=== PATIENT | female | born 1990 | race Caucasian/White ===

== ENCOUNTER 2017-09-05 13:02 | Outpatient (CLI) | payer BC ==
[~2017-09-05] VITALS: Ht 182.9 cm; Wt 77.1 kg
[2017-09-05 13:10] VITALS: BP 138/101
[2017-09-05 13:51] VITALS: BP 135/65
[2017-09-05 14:06] LABS: BILIRUBIN,URINE NEGATIVE (NEGATIVE); KETONES,URINE NEGATIVE (NEGATIVE); LEUKOCYTE ESTERASE ,URINE 1+ (NEGATIVE); NITRITE,URINE NEGATIVE (NEGATIVE); PH,URINE 7 (5-9); PROTEIN,URINE 2+ (NEGATIVE); UROBILINOGEN,URINE NORMAL (NORMAL)
[2017-09-05 14:18] LABS: SQUAMOUS EPITHELIAL CELL,UR 0-2 /HPF; WBC,URINE 0-2 /HPF
[2017-09-05 14:21] LABS: BASOPHILS % (AUTO) 0 % (0-10); EOSINOPHILS # (AUTO) 0.1 10^3/uL (0.0-0.3); EOSINOPHILS % (AUTO) 1 % (0-10); LYMPHOCYTES % (AUTO) 23 % (12-44); MEAN CORPUSCULAR HEMOGLOBIN 28 PG (25-34); MEAN CORPUSCULAR HGB CONC 32 G/DL (32-36); MEAN CORPUSCULAR VOLUME 87 FL (80-99); MEAN PLATELET VOLUME 9.6 FL (7.4-10.4); MONOCYTES # (AUTO) 0.5 X 10^3 (0.0-1.0); MONOCYTES % (AUTO) 6 % (0-12); NEUTROPHILS # (AUTO) 6.2 X 10^3 (1.8-7.8); NEUTROPHILS % (AUTO) 70 % (42-75); PLATELET COUNT 269 10^3/uL (130-400); RED BLOOD COUNT 3.64 10^6/uL (4.35-5.85); RED CELL DISTRIBUTION WIDTH 14.1 % (10.0-14.5); WHITE BLOOD COUNT 8.9 10^3/uL (4.3-11.0)
[2017-09-05 14:44] LABS: ALANINE AMINOTRANSFERASE 11 U/L (0-55); ALBUMIN 3.5 GM/DL (3.2-4.5); ANION GAP 8 MMOL/L (5-14); ASPARTATE AMINO TRANSFERASE 17 U/L (5-34); BILIRUBIN,TOTAL 0.2 MG/DL (0.1-1.0); BLOOD UREA NITROGEN 8 MG/DL (7-18); BUN/CREATININE RATIO 13; CALCIUM 9.4 MG/DL (8.5-10.1); CARBON DIOXIDE 24 MMOL/L (21-32); CHLORIDE 108 MMOL/L (98-107); CREATININE SERUM 0.64 MG/DL (0.60-1.30); GFR ESTIMATED > 60; GLUCOSE 84 MG/DL (70-105); POTASSIUM 3.8 MMOL/L (3.6-5.0); SODIUM 140 MMOL/L (135-145); TOTAL PROTEIN 6.7 GM/DL (6.4-8.2)
[2017-09-05 15:43] VITALS: BP 123/66
--- NOTE | 2017-09-05 17:14 | Diagnostic Imaging Report ---
EXAMINATION: Pelvic ultrasound. INDICATION: Vaginal bleeding. FINDINGS: There is a single live intrauterine . The heart rate is 144 beats per minutes. The cervix is 3.9 cm in length and is closed. The placenta is posterior with no placenta previa. No retroplacental hemorrhage as well. position is cephalic. The maternal adnexa are obscured by the gravid uterus. IMPRESSION: Live intrauterine . No placenta previa or retroplacental hemorrhage. Dictated by: Dictated on workstation # [id number]
[2017-09-05] MEDS ORDERED: PREN-37 PO (17:29)
[2017-09-05] MEDS ORDERED: PROG50VI2 IM (17:29)
--- NOTE | 2017-09-05 17:35 | History & Physical ---
History and Physical Date Seen by Provider: Sep 05, 2017 Time Seen by Provider: 17:30 this patient is a 26-year-old white female currently at 19-6/7 weeks' gestation. She has had no problems with his to date however today at about 1145 she began bleeding vigorously from the vagina and passed a baseball size clot. She contacted her PCP in [place] and was instructed to go to the local labor and delivery. on her arrival here she was bleeding per the vagina. She's not passing clots. Since she has been here that bleeding has slowly waned to the point where she said no active bleeding. Ultrasound was obtained that showed a normal holden vertex position no evidence of abruption. The placenta is posterior and there is no previa. There is no overt subchorionic hematoma or retroplacental bleed. The ultrasound was normal. Digital cervical exam per the nurse shows a cervix is thick and closed with only a trace of blood on the examining glove. She denies rupture membranes bleeding she denies contractions. She does feel baby moving. Her history is significant for having delivered her previous at 34-35 weeks. Allergies are none Medications are vitamins and generic injectable progesterone each week. Past medical history is negative Past surgical history is negative Past obstetric history is as per the above Family history is noncontributory Social history patient denies tobacco drug or alcohol use has no history of STDs. HEENT exam is normal Neck is supple no lymphadenopathy no thyromegaly Abdomen is gravid soft nontender nondistended Extremities show clubbing or cyanosis. There is no Homans sign. Pelvic exam per the nurse is as noted above Lab work is as follows Laboratory Tests Test 09/05/17 13:50 09/05/17 14:05 Range/Units Urine Color MARRY H Urine Clarity SLIGHTLY CLOUDY Urine pH 7 5-9 Urine Specific Beatty 1.010 L 1.016-1.022 Urine Protein 2+ H NEGATIVE Urine Glucose (UA) NEGATIVE NEGATIVE Urine Ketones NEGATIVE NEGATIVE Urine Nitrite NEGATIVE NEGATIVE Urine Bilirubin NEGATIVE NEGATIVE Urine Urobilinogen NORMAL NORMAL MG/DL Urine Leukocyte Esterase 1+ H NEGATIVE Urine RBC (Auto) 5+ H NEGATIVE Urine RBC >100 H /HPF Urine WBC 0-2 /HPF Urine Squamous Epithelial Cells 0-2 /HPF Urine Crystals NONE /LPF Urine Bacteria NEGATIVE /HPF Urine Casts NONE /LPF Urine Mucus NEGATIVE /LPF Urine Culture Indicated NO Urine Opiates Screen NEGATIVE NEGATIVE Urine Oxycodone Screen NEGATIVE NEGATIVE Urine Methadone Screen NEGATIVE NEGATIVE Urine Propoxyphene Screen NEGATIVE NEGATIVE Urine Barbiturates Screen NEGATIVE NEGATIVE Ur Tricyclic Antidepressants Screen NEGATIVE NEGATIVE Urine Phencyclidine Screen NEGATIVE NEGATIVE Urine Amphetamines Screen NEGATIVE NEGATIVE Urine Methamphetamines Screen NEGATIVE NEGATIVE Urine Benzodiazepines Screen NEGATIVE NEGATIVE Urine Cocaine Screen NEGATIVE NEGATIVE Urine Cannabinoids Screen NEGATIVE NEGATIVE White Blood Count 8.9 4.3-11.0 10^3/uL Red Blood Count 3.64 L 4.35-5.85 10^6/uL Hemoglobin 10.3 L 11.5-16.0 G/DL Hematocrit 32 L 35-52 % Mean Corpuscular Volume 87 80-99 FL Mean Corpuscular Hemoglobin 28 25-34 PG Mean Corpuscular Hemoglobin Concent 32 32-36 G/DL Red Cell Distribution Width 14.1 10.0-14.5 % Platelet Count 269 130-400 10^3/uL Mean Platelet Volume 9.6 7.4-10.4 FL Neutrophils (%) (Auto) 70 42-75 % Lymphocytes (%) (Auto) 23 12-44 % Monocytes (%) (Auto) 6 0-12 % Eosinophils (%) (Auto) 1 0-10 % Basophils (%) (Auto) 0 0-10 % Neutrophils # (Auto) 6.2 1.8-7.8 X 10^3 Lymphocytes # (Auto) 2.0 1.0-4.0 X 10^3 Monocytes # (Auto) 0.5 0.0-1.0 X 10^3 Eosinophils # (Auto) 0.1 0.0-0.3 10^3/uL Basophils # (Auto) 0.0 0.0-0.1 10^3/uL Sodium Level 140 135-145 MMOL/L Potassium Level 3.8 3.6-5.0 MMOL/L Chloride Level 108 H 98-107 MMOL/L Carbon Dioxide Level 24 21-32 MMOL/L Anion Gap 8 5-14 MMOL/L Blood Urea Nitrogen 8 7-18 MG/DL Creatinine 0.64 0.60-1.30 MG/DL Estimat Glomerular Filtration Rate > 60 BUN/Creatinine Ratio 13 Glucose Level 84 70-105 MG/DL Calcium Level 9.4 8.5-10.1 MG/DL Total Bilirubin 0.2 0.1-1.0 MG/DL Aspartate Amino Transf (AST/SGOT) 17 5-34 U/L Alanine Aminotransferase (ALT/SGPT) 11 0-55 U/L Alkaline Phosphatase 53 40-136 U/L Total Protein 6.7 6.4-8.2 GM/DL Albumin 3.5 3.2-4.5 GM/DL urine shows gross blood consistent with vaginal bleeding otherwise the lab work is all normal heart tones were auscultated were in the normal range. Assessment and plan 20 week intrauterine with unexplained vaginal bleeding. The patient's exam labs and ultrasound findings are normal. The patient has stopped bleeding she is now allowed discharge home after being reassured. She is given precautions for return to clinic for any recurrence of her bleeding 20 week with vaginal bleeding Allergies and Home Medications Allergies Coded Allergies: No Known Drug Allergies (Unverified , 09/05/17) Home Medications Vit/Iron Fumarate/FA 1 Each Tablet, 1 EACH PO DAILY, (Reported) Progesterone 50 Mg/1 Ml Vial, 50 MG IM WEEK, (Reported) CHERIE LEES MD Sep 05, 2017 17:35
[2017-09-05] MEDS ORDERED: INFLUENZA TRIvalent 2017-2018 0.5 ML/45 MCG SYR IM ONE (19:15)
== END 2017-09-05 17:30 | disposition home or self-care (01) ==
LOC: WSo 13:02 → LDRP 13:04 → WSo 17:30
PROVIDERS: ATTEND Obstetrics & Gynecology
DX: O46.92 Antepartum hemorrhage, unspecified, second trimester (principal); Z3A.20 20 weeks gestation of pregnancy
CPT/HCPCS: 36415; 76815; 80053; 80306; 81000; 85025; 86850; 86900; 86901; 87088